=== PATIENT | female | born 1985 | race Caucasian/White ===

== ENCOUNTER 2017-04-05 12:12 | Emergency (ER) | payer SELFPAY ==
[~2017-04-05] VITALS: Ht 167.6 cm; Wt 60.0 kg
[2017-04-05 12:13] VITALS: BP 143/90; PULSE 109; RESP 18; TEMP 98.7; O2SAT 96
[2017-04-05] MEDS ORDERED: ONDANSETRON HCL 4 MG/2 ML VIAL IVP ONE (12:45)
[2017-04-05] MEDS ORDERED: SODIUM CHLORIDE 0.9% FLUSH 10 ML FLUSH IV FLUSH PRN (12:45)
--- NOTE | 2017-04-05 12:52 | PD ---
HPI Chief Complaint: Abdominal Pain Time Seen by Provider: 12:35 Travel History International Travel<30 days: No Contact w/Intl Traveler<30days: No Traveled to known affect area: No History of Present Illness HPI 31-year-old female complains of left low quadrant abdominal pain. Patient states that the pain started about 3 weeks ago. Patient states the pain is stabbing pain localized to left upper quadrant of the abdomen and left low rib cage area. Patient denies any pain radiation. Patient states the pain is worse with deep breathing. Patient denies any coughing congestion. Patient states that she has intermittent dysuria for the past 3 weeks. Patient states that she has intermittent nausea but the nausea is worse today. Patient denies any vaginal discharge or bleeding. Patient denies any chance of being . Patient denies any injury to the chest wall on the left side abdomen area. 1613 p.m. Patient's partner contact the patient's mother. Patient's mother told my nurse the patient intentionally cut her left arm several weeks ago. Patient states that she was stressed out and cut her left arm. Patient denies any suicidal ideation today. Patient states that she will follow-up with her psychiatrist out patient. [facility] Past Medical History Cerebrovascular Accident: Yes (2003) Myocardial Infarction: Yes ?: Not LMP: FEB 2017 Past Surgical History Tonsillectomy: Yes Social History Alcohol Use: Yes (DAILY) Tobacco Use: Yes Substance Use: No Allergies-Medications (Allergen,Severity, Reaction): Coded Allergies: amoxicillin (Verified Allergy, Intermediate, Rash, 04/05/17) clavulanic acid (Verified Allergy, Intermediate, Rash, 04/05/17) Review of Systems General / Constitutional: No: Fever Eyes: No: Visual changes HENT: No: Headaches Cardiovascular: No: Chest Pain or Discomfort Respiratory: No: Shortness of Breath Gastrointestinal: Positive: Nausea, Abdominal Pain Genitourinary: No: Dysuria Musculoskeletal: No: Pain Skin: No Rash Neurologic: No: Weakness Psychiatric: No: Depression Endocrine: No: Polydipsia Hematologic/Lymphatic: No: Easy Bruising Physical Exam Narrative GENERAL: Well-nourished, well-developed patient. SKIN: Focused skin assessment warm/dry. HEAD: Normocephalic. EYES: No scleral icterus. No injection or drainage. NECK: Supple, trachea midline. No JVD or lymphadenopathy. CARDIOVASCULAR: Regular rate and rhythm without murmurs, gallops, or rubs. RESPIRATORY: Breath sounds equal bilaterally. No accessory muscle use. GASTROINTESTINAL: Abdomen soft, nondistended. Patient has mild tenderness on palpation left upper quadrant of the abdomen. No rebound tenderness. No mass. MUSCULOSKELETAL: No cyanosis, or edema. Patient has mild tenderness on palpation left lower rib cage area. No crepitus no deformity noted. BACK: Nontender without obvious deformity. No CVA tenderness. Neurologic exam normal. Data Data Last Documented VS Vital Signs Date Time Temp Pulse Resp B/P (MAP) Pulse Ox O2 Delivery O2 Flow Rate FiO2 04/05/17 12:13 98.7 109 18 143/90 (107) 96 Orders Orders Complete Blood Count With Diff (04/05/17 12:42) Comprehensive Metabolic Panel (04/05/17 12:42) Lipase (04/05/17 12:42) Urinalysis - C+S If Indicated (04/05/17 12:42) Ct Abd/Pel W Iv Contrast(Rout) (04/05/17 12:42) Iv Access Insert/Monitor (04/05/17 12:42) Ecg Monitoring (04/05/17 12:42) Oximetry (04/05/17 12:42) Ondansetron Inj (Zofran Inj) (04/05/17 12:45) Sodium Chloride 0.9% Flush (Ns Flush) (04/05/17 12:45) Chest, Single Ap (04/05/17 12:42) Ed Urine Pregnancytest Poc (04/05/17 12:42) Drug Screen, Random Urine (04/05/17 12:47) Alcohol (Ethanol) (04/05/17 13:04) Iohexol 350 Inj (Omnipaque 350 Inj) (04/05/17 15:32) Potassium Chloride (Kcl) (04/05/17 16:00) Labs Laboratory Tests Test 04/05/17 13:04 White Blood Count 5.7 TH/MM3 Red Blood Count 3.74 MIL/MM3 Hemoglobin 13.3 GM/DL Hematocrit 38.2 % Mean Corpuscular Volume 102.1 FL Mean Corpuscular Hemoglobin 35.5 PG Mean Corpuscular Hemoglobin Concent 34.7 % Red Cell Distribution Width 12.8 % Platelet Count 199 TH/MM3 Mean Platelet Volume 7.9 FL Neutrophils (%) (Auto) 52.5 % Lymphocytes (%) (Auto) 37.0 % Monocytes (%) (Auto) 8.2 % Eosinophils (%) (Auto) 0.9 % Basophils (%) (Auto) 1.4 % Neutrophils # (Auto) 3.0 TH/MM3 Lymphocytes # (Auto) 2.1 TH/MM3 Monocytes # (Auto) 0.5 TH/MM3 Eosinophils # (Auto) 0.1 TH/MM3 Basophils # (Auto) 0.1 TH/MM3 CBC Comment DIFF FINAL Differential Comment Urine Color YELLOW Urine Turbidity CLEAR Urine pH 6.0 Urine Specific [place] 1.011 Urine Protein 30 mg/dL Urine Glucose (UA) NEG mg/dL Urine Ketones NEG mg/dL Urine Occult Blood SMALL Urine Nitrite NEG Urine Bilirubin NEG Urine Urobilinogen LESS THAN 2.0 MG/DL Urine Leukocyte Esterase TRACE Urine RBC 1 /hpf Urine WBC 1 /hpf Urine Squamous Epithelial Cells <1 /hpf Microscopic Urinalysis Comment CULT NOT INDICATED Blood Urea Nitrogen 9 MG/DL Creatinine 0.63 MG/DL Random Glucose 104 MG/DL Total Protein 8.0 GM/DL Albumin 4.4 GM/DL Calcium Level 8.0 MG/DL Alkaline Phosphatase 85 U/L Aspartate Amino Transf (AST/SGOT) 121 U/L Alanine Aminotransferase (ALT/SGPT) 67 U/L Total Bilirubin 0.8 MG/DL Sodium Level 139 MEQ/L Potassium Level 3.2 MEQ/L Chloride Level 103 MEQ/L Carbon Dioxide Level 24.8 MEQ/L Anion Gap 11 MEQ/L Estimat Glomerular Filtration Rate 109 ML/MIN Lipase 280 U/L Urine Opiates Screen NEG Urine Barbiturates Screen NEG Urine Amphetamines Screen NEG Urine Benzodiazepines Screen NEG Urine Cocaine Screen NEG Urine Cannabinoids Screen NEG Ethyl Alcohol Level 323 MG/DL MDM Medical Decision Making Medical Screen Exam Complete: Yes Emergency Medical Condition: Yes Interpretation(s) Last Impressions Chest X-Ray 04/05/17 1242 Signed Impressions: Service Date/Time: Wednesday, April 05, 2017 12:56 - CONCLUSION: No acute disease. Harvey Reid MD FACR Abdomen/Pelvis CT 04/05/17 1242 Signed Impressions: Service Date/Time: Wednesday, April 05, 2017 15:18 - CONCLUSION: 1. Mild gallbladder prominence without stones or inflammatory changes otherwise negative. 2. I do not see etiology for abdominal pain. Harvey Reid MD FACR 1557 PM. CBC WBC 5.7. Hemoglobin 13.3 hematocrit 30.2. MCV 102.1. Potassium 3.2. AST 121. ALT 67. Alcohol 322. Urine drug screen negative. UA is negative. Differential Diagnosis Differential diagnosis including musculoskeletal, rib injury, pleurisy, gastritis, PUD, colitis, nephrolithiasis, pyelonephritis. Narrative Course 31-year-old female with left upper quadrant abdominal pain and left lower rib cage pain. The pain started 3 weeks ago. Physical exam shows tenderness to palpation left lower rib cage and left upper quadrant. CBC CMP and CT and chest x-ray reveals no etiology for the pain. Patient advised to follow with local physician. Patient denies any depression or suicidal ideation today. Patient states that she will follow-up with her physician outpatient for her psychiatric problem. KCl 20 mEq by mouth given. Diagnosis Primary Impression: Abdominal pain Qualified Codes: R10.12 - Left upper quadrant pain Additional Impressions: Alcohol intoxication Qualified Codes: F10.920 - Alcohol use, unspecified with intoxication, uncomplicated Hypokalemia Patient Instructions: General Instructions Additional Instructions: Encourage potassium rich diet. Follow-up with local physician. Advised [facility]. Ibuprofen as needed for pain. Med/Other Pt SpecificInfo: No Change to Meds Scripts Ibuprofen (Ibuprofen) 600 Mg Tab 600 MG PO TID for Pain, #30 TAB 0 Refills Prov: Elie Ahuja MD 04/05/17 Disposition: 01 DISCHARGE HOME Condition: Stable Elie Ahuja MD Apr 05, 2017 12:52
--- NOTE | 2017-04-05 13:30 | RADRPT ---
EXAM DATE/TIME: 04/05/2017 12:56 [facility] COMPARISON: No previous studies available for comparison. INDICATIONS : Pain under her left breast. MEDICAL HISTORY : None. SURGICAL HISTORY : None. ENCOUNTER: Initial ACUITY: 3 weeks PAIN SCORE: 8/10 LOCATION: Left chest FINDINGS: A single view of the chest demonstrates the lungs to be symmetrically aerated without evidence of mas s, infiltrate or effusion. The cardiomediastinal contours are unremarkable. Osseous structures are intact. CONCLUSION: No acute disease. Harvey Reid MD FACR on April 05, 2017 at 13:27 Board Certified Radiologist. This report was verified electronically.
[2017-04-05 13:31] LABS: BASOPHIL # 0.1 TH/MM3 (0-0.2); BASOPHIL % 1.4 % (0.0-2.0); EOSINOPHIL # 0.1 TH/MM3 (0-0.4); EOSINOPHIL % 0.9 % (0.0-4.0); HEMATOCRIT 38.2 % (35.0-46.0); HEMO FLAGS DIFF FINAL; LYMPHOCYTE # 2.1 TH/MM3 (1.0-4.8); MEAN CELL VOLUME 102.1 FL (80.0-100.0); MEAN CORPUSCULAR HEMOGLOBIN 35.5 PG (27.0-34.0); MEAN CORPUSCULAR HGB CONC 34.7 % (32.0-36.0); MONO % 8.2 % (0.0-8.0); NEUT % 52.5 % (16.0-70.0); PLATELET COUNT 199 TH/MM3 (150-450); RED BLOOD COUNT 3.74 MIL/MM3 (4.00-5.30); RED CELL DISTRIBUTION WIDTH 12.8 % (11.6-17.2); WHITE BLOOD COUNT 5.7 TH/MM3 (4.0-11.0)
[2017-04-05 13:36] LABS: BLOOD, URINE SMALL (NEG); COMMENT (UR) CULT NOT INDICATED; CULTURE IF INDICATED CULT NOT INDICATED; GLUCOSE,URINE NEG (NEG); KETONE, URINE NEG (NEG); NITRITE,URINE NEG (NEG); SQUAMOUS EPITHELIAL CELL URINE <1 /hpf (0-5); URINE COLOR YELLOW (YELLW/STRAW)
[2017-04-05 13:44] LABS: ANION GAP 11 MEQ/L (5-15); AST (GOT) 121 U/L (15-37); BICARBONATE 24.8 MEQ/L (21.0-32.0); BLOOD UREA NITROGEN 9 MG/DL (7-18); CHLORIDE 103 MEQ/L (98-107); GLOMERULAR FILTRATION RATE 109 ML/MIN (>89); POTASSIUM 3.2 MEQ/L (3.5-5.1); SODIUM (NA) 139 MEQ/L (136-145)
[2017-04-05 13:45] LABS: ALT (GPT) 67 U/L (10-53)
[2017-04-05 13:56] LABS: ALKALINE PHOSPHATASE 85 U/L (45-117); TOTAL BILIRUBIN ADULT 0.8 MG/DL (0.2-1.0)
[2017-04-05 14:06] LABS: ALCOHOL 323 MG/DL (0-5)
[2017-04-05] MEDS ORDERED: IOHEXOL 350 MG/ML 10 ML VIAL (for RAD DIAG) IVCONTRAST ONE (15:32)
--- NOTE | 2017-04-05 15:43 | RADRPT ---
EXAM DATE/TIME: 04/05/2017 15:18 [facility] COMPARISON: No previous studies available for comparison. INDICATIONS : Abdominal pain. IV CONTRAST: 75 cc Omnipaque 350 (iohexol) IV ORAL CONTRAST: No oral contrast ingested. RADIATION DOSE: 6.64 CTDIvol (mGy) MEDICAL HISTORY : Cardiovascular disease. CVA SURGICAL HISTORY : None. ENCOUNTER: Initial ACUITY: 3 weeks PAIN SCALE: 4/10 LOCATION: Left upper quadrant TECHNIQUE: Volumetric scanning of the abdomen and pelvis was performed. Using automated exposure control and ad justment of the mA and/or kV according to patient size, radiation dose was kept as low as reasonably achievable to obtain optimal diagnostic quality images. DICOM format image data is available electro nically for review and comparison. FINDINGS: One braces are clear. Small parafalcine mass right lobe of the liver measuring 2 cm nonspecific. Spleen, pancreas, adrenal s and kidneys are unremarkable ;mildly prominent benign appearing gallbladder Region of cecum and terminal unremarkable 2.5 cm cystic mass left adnexal region Right ovary unremarkable The contents otherwise normal There is no free fluid Review of bone windows reveals only degenerative changes. CONCLUSION: 1. Mild gallbladder prominence without stones or inflammatory changes otherwise negative. 2. I do not see etiology for abdominal pain. Harvey Reid MD FACR on April 05, 2017 at 15:39 Board Certified Radiologist. This report was verified electronically.
[2017-04-05] MEDS ORDERED: POTASSIUM CHLORIDE 20 MEQ CONTROLLED RELEASE TAB PO ONE (16:00)
[2017-04-05] MEDS ORDERED: IBUP-232 PO (16:17)
== END 2017-04-05 22:33 | disposition home or self-care (01) ==
LOC: NEPD 12:12
DX: R10.12 Left upper quadrant pain (principal); F10.129 Alcohol abuse with intoxication, unspecified; E87.6 Hypokalemia; R30.0 Dysuria; R11.0 Nausea; I25.2 Old myocardial infarction; Z72.0 Tobacco use; Z86.73 Personal history of transient ischemic attack (TIA), and cerebral infarction without residual deficits; Z88.0 Allergy status to penicillin
CPT/HCPCS: 71010; 74177; 80053; 80307; 81001; 83690; 84703; 85025; 96374; 99285; J2405; Q9967